=== PATIENT | male | born 1965 | race Caucasian/White ===

== ENCOUNTER 2016-07-23 16:11 | Outpatient (CLI) | payer OTHER | END 2016-07-23 16:12 | disposition home or self-care (01) | LOC: BURLAB 16:11 | PROVIDERS: ATTEND Family Medicine | DX: Z01.812 Encounter for preprocedural laboratory examination (principal) | CPT/HCPCS: 36415; 82565 ==

== ENCOUNTER 2016-07-24 15:55 | Outpatient (CLI) | payer OTHER ==
--- NOTE | 2016-07-24 19:26 | MRI ---
BRAIN MRI WITH AND WITHOUT CONTRAST 07/24/16 COMPARISON: 01/08/15 and 12/06/12 HISTORY: Meningioma. TECHNIQUE: Multiplanar and multisequence MR imaging of the brain is obtained with and without contrast. FINDINGS: The diffusion weighted imaging demonstrates no evidence for acute infarction. There are a few opacified mastoid air cells bilaterally. The paranasal sinuses demonstrate normal si gnal intensity. Arterial flow voids at the axial level of the skull base appear unremarkable on the T2 weighted imaging. Regional bone marrow signal intensity appears within normal limits. There is no midline shift, mass effect, or ventricular enlargement. There is a small extra-axial les ion along the left cerebral convexity in the posterior left frontal region measuring approximately 7 -8 mm, stable, when compared to prior examinations, suggesting a small stable meningioma. It is parvin pherally enhancing with a central area of hypoenhancement, stable. No additional lesions are noted. No abnormal intra-axial enhancement. IMPRESSION: Stable subcentimeter extra-axial mass overlying the high left parietal lobe. POS: JENNIFER
== END 2016-07-24 15:56 | disposition home or self-care (01) ==
LOC: BURMRI 15:55
PROVIDERS: ATTEND Family Medicine
DX: D32.9 Benign neoplasm of meninges, unspecified (principal)
CPT/HCPCS: 70553

== ENCOUNTER 2022-08-20 20:05 | Emergency (ER) | payer BC, OTHER | END 2022-08-20 20:37 | disposition home or self-care (01) | LOC: BURERS 20:05 | DX: J20.9 Acute bronchitis, unspecified (principal) | CPT/HCPCS: 99283 ==